=== PATIENT | male | born 1975 | race Hispanic/Latino ===

== ENCOUNTER 2017-09-11 22:10 | Emergency (ER) | payer OTHER ==
[~2017-09-11] VITALS: Ht 167.6 cm; Wt 72.7 kg
[~2017-09-11 22:10] MED LIST: NAPROSYN500 MG PO; ULTRACET1 TABLET PO
[2017-09-11 22:56] LABS: HEMATOCRIT 46.3 % (38.0-50.0); HEMOGLOBIN 16.3 G/DL (12.5-16.6); MCHC 35.2 G/DL (30.0-36.0); MCV 79.4 FL (86-99); PLATELET COUNT 256 K/uL (156-360); RBC DIS.WIDTH-CV 13.2 % (11.8-14.6); RBC DIS.WIDTH-SD 36.9 % (39-53); RED BLOOD COUNT 5.83 M/uL (4.00-5.50)
[2017-09-11 23:13] LABS: CHLORIDE 102 mEq/L (99-109); POTASSIUM 4.2 mEq/L (3.7-5.4); SODIUM 142 mEq/L (136-147)
[2017-09-11 23:15] LABS: GLUCOSE 119 mg/dL (70-99)
[2017-09-11 23:17] LABS: TROP-I INTERPRETATION NEGATIVE; TROPONIN-I < 0.01 ng/mL (0.0-0.30)
[2017-09-11 23:19] LABS: CREATININE 1.1 mg/dL (0.6-1.3); GFR ESTIMATE (CALCULATED) > 59 mL/min/ (58.99-99999)
[2017-09-11 23:20] LABS: UREA NITROGEN (BUN) 18 mg/dL (9-23)
[2017-09-12] MEDS ORDERED: ZANTAC150 MG PO (02:09)
[2017-09-12 02:23] LABS: TROP-I INTERPRETATION NEGATIVE; TROPONIN-I 0.01 ng/mL (0.0-0.30)
[2017-09-12 02:38] VITALS: BP 106/71
== END 2017-09-12 02:39 | disposition home or self-care (01) ==
LOC: EME 22:10
PROVIDERS: Nurse Practitioner Acute Care
DX: R07.89 Other chest pain (principal); K21.9 Gastro-esophageal reflux disease without esophagitis; E78.00 Pure hypercholesterolemia, unspecified
CPT/HCPCS: 71046; 80048; 84484; 85027; 93005; 99281; 99285; J2405